=== PATIENT | female | born 2000 | race Asian ===

== ENCOUNTER 2023-10-10 01:30 | Emergency (ER) | payer SELFPAY ==
[~2023-10-10] VITALS: Ht 157.5 cm; Wt 54.6 kg
[2023-10-10 02:02] VITALS: O2SAT 98
[2023-10-10] MEDS: KETOROLAC 30MG/ML VIAL IM ONE (03:45)
[2023-10-10] MEDS: LIDOCAINE 5% PATCH TOP SCH (03:45)
[2023-10-10] MEDS: DEXAMETHASONE 10 MG/ML VIAL IM ONE (03:45)
[2023-10-10] MEDS ORDERED: NAPR-1164 MT (04:58)
[2023-10-10] MEDS ORDERED: BACL-141 MT (04:58)
[2023-10-10 06:18] VITALS: BP 103/76; PULSE 67; RESP 18; TEMP 98.5
== END 2023-10-10 06:17 | disposition home or self-care (01) ==
LOC: ER 01:30
DX: M54.2 Cervicalgia (principal); Z00.00 Encounter for general adult medical examination without abnormal findings
CPT/HCPCS: 96372; 99284; J1100; J1885; Z7610